=== PATIENT | male | born 1980 | race Caucasian/White ===

== ENCOUNTER 2024-08-31 08:12 | Outpatient (REF) | payer MEDICAID, SELFPAY ==
--- OUTSIDE RECORDS SUMMARY | 2024-08-31 08:21 | XMS_ITS | Clinical Summary ---
Author Organization [facility] [address] [place] [address] [place] [phone] Phone Care Team Providers Care Lean Manufacturing Leader Name Role Phone Jorge A Magallanes MD Primary Care Provider Allergies Active Allergy Reactions Criticality Noted Date Comments Lisinopril 03/10/2024 Other Reaction(s): SHELBY Shrimp 03/10/2024 Tramadol Nausea And Vomiting Medium 06/21/2013 Medications sertraline (ZOLOFT) 50 mg tablet Take 1 tablet (50 mg total) by mouth 1 (one) time each day. 4 Active ipratropium (ATROVENT) 21 mcg (0.03 %) nasal spray See Instructions, PRN Nasal Congestion, 1 spray each nostril BID, # 1 each, 4 Refills, Maintenance, 05/19/23 13:43:00 EST, [facility]/pharmacy #[id number], Partial fill upon patient request if the prescription is for a schedule II opioid drug., 1 spray each nostri... 4 Active cyclobenzaprine (FLEXERIL) 10 mg tablet Take 1 tab 3 times a day as needed for muscle spasm. Do not drive or operate heavy machinery on this medication. 4 Active cefpodoxime (VANTIN) 200 mg tablet Take 1 tablet (200 mg total) by mouth. 9 Active Active Problems Problem Noted Date Diagnosed Date Anxiety 03/10/2024 Depression 03/10/2024 Obstructive sleep apnea syndrome 03/10/2024 Overview (03/10/2024): Extremely severe Sleep related hypoxia 03/10/2024 Sexual dysfunction 03/10/2024 HTN (hypertension) 06/21/2013 Prediabetes 06/15/2013 Lumbar radiculopathy 06/07/2013 Obesity 06/07/2013 Immunizations Name Administration Dates Next Due Influenza trivalent, with pr eservative (Fluzone; Afluria) 6mo and older 06/07/2013 Tdap Tetanus diptheria acell ular pertussis (Boostrix; Adacel) 7yo and older 06/07/2013 Surgical History Surgery Date Site/Laterality Comments KNEE SURGERY PROCEDURE: HISTORICAL KNEE SURGERY; COMMENT: related to injury - torn meniscus HERNIA REPAIR PROCEDURE: REPAIR UMBILICAL HERNIA Medical History Medical History Date Comments Lumbar radiculopathy DX:Lumbar r adiculopathy Family History Medical History Relation Name Comments Coronary artery disease Mother Diabetes Mother Hypertension Mother Relation Name Status Comments Mother Social History Tobacco Use Types Packs/Day Years Used Date Smoking Tobacco: Former Cigarettes Q uit: 04/27/2001 Smokeless Tobacco: Never Alcohol Use Standard Drinks/Week Comments No 0 (1 standard drink = 0.6 oz pur e alcohol) Sex and Gender Information Value Date Recorded Sex Assigned at Not on file Legal Sex Male 5:37 AM EST Gender Identity Not on file Sexual Orientation Not on file Obstetrics History Last Filed Vital Signs Vital Sign Reading Time Taken Comments Blood Pressure 133/77 12/01/2023 4:03 PM EDT L A rm Pulse 65 12/01/2023 4:03 PM EDT Temperature - - Respiratory Rate - - Oxygen Saturation - - Inhaled Oxygen Concentration - - Weight - - Height - - Body Mass Index - - Plan of Treatment Health Maintenance Due Date Last Done Comments Hepatitis B Vaccines (1 of 3 - 19+ 3-dose series) 2000 DTaP,Tdap,and Td Vaccines (2 - Td or Tdap) 06/07/2023 06/07/2013 Cholesterol Screening (Lipid Panel) 12/22/2023 Depression Screening 12/22/2023 HIV Screening 12/22/2023 Hepatitis C Screening 12/22/2023 Hypertension/CHF/CAD Annual BMP Blood Test 12/22/2023 Social Influencers of Health Screening 12/22/2023 COVID-19 Vaccine (2 - 2023-2 5 season) 2023 12/26/2020 Influenza Vaccine (Season Ended) 2024 06/07/19 14 HIB Vaccines Aged Out No longer eligi ble based on patient's age to complete this topic HPV Vaccines Aged Out No longer eligi ble based on patient's age to complete this topic Hepatitis A Vaccines Aged Out No long er eligible based on patient's age to complete this topic IPV Vaccines Aged Out No longer eligi ble based on patient's age to complete this topic MMR Vaccines Aged Out No longer eligi ble based on patient's age to complete this topic Meningococcal ACWY Vaccine Aged Out N o longer eligible based on patient's age to complete this topic Meningococcal B Vaccine Aged Out No l onger eligible based on patient's age to complete this topic Pneumococcal Vaccine: Pediat rics (0 to 5 Years) and At-Risk Patients (6 to 64 Years) Aged Out No longer eligi ble based on patient's age to complete this topic RSV Immunization Patients Un ernesto 20 months Aged Out No longer eligible b ased on patient's age to complete this topic Varicella Vaccines Aged Out No longer eligible based on patient's age to complete this topic Care Teams Lean Manufacturing Leader Relationship Specialty Start Date End Date Jorge A Magallanes MD [address] [place] [address] PCP - General 11/02/23
[2024-08-31 10:59] LABS: MANUAL DIFF FLAG NO
[2024-08-31 11:11] LABS: Basophils Percent Auto 0.5 % (0-2); Eosinophils Absolute Auto 0.2 X10*3/uL (0.0-0.4); Eosinophils Percent Auto 3.9 % (0-4); Hemoglobin 12.2 g/dl (14.0-18.0); Imm Gran Abs Auto 0.02 X10*3/uL (0.00-0.03); Imm Gran Pct Auto 0.3 % (0.0-0.4); Lymphocytes Absolute Auto 2.7 X10*3/uL (1.2-4.9); Lymphocytes Percent Auto 44.2 % (20-40); Mean Corpuscular HGB Conc 31.3 g/dl (31.0-36.0); Mean Corpuscular Hemoglobin 26.6 pg (27.0-33.0); Mean Platelet Volume 10.6 fL (9.4-12.4); Monocytes Absolute Auto 0.4 X10*3/uL (0.1-1.2); Monocytes Percent Auto 5.7 % (2-11); Neutrophils Absolute Auto 2.8 x10*3/uL (2.0-8.3); Neutrophils Percent Auto 45.4 % (45-73); Platelet Count 249 X10*3/uL (160-400); Red Blood Count 4.59 X10*6/uL (4.60-5.80); Red Cell Distribution Width 14.6 % (11.0-16.0); White Blood Count 6.1 X10*3/uL (4.8-10.8)
[2024-08-31 11:56] LABS: Alanine Aminotransferase 39 U/L (0-40); Albumin Level 4.2 g/dL (3.5-5.0); Alkaline Phosphatase 65 U/L (39-117); Anion Gap 11 (12-20); Aspartate Amino Transferase 27 U/L (5-37); Bilirubin Total 0.5 mg/dL (0.0-1.0); Blood Urea Nitrogen 13 mg/dL (9-16); Calcium 9.2 mg/dL (8.4-10.2); Carbon Dioxide 24 mmol/L (22-29); Chloride 106 mmol/L (96-108); Estimated Glomerular Filt Rate > 60; Glucose Random 87 mg/dL (60-115); Potassium 4.1 mmol/L (3.3-5.1); Sodium 137 mmol/L (135-145); Total Protein 7.5 g/dL (6.5-8.0)
[2024-08-31 12:11] LABS: HIV AB/AG Nonreactive (Nonreactive); HIV Num 1 0.06 S/CO (0.00-0.99); ~HepC Num1 0.11 S/CO (0.00-0.79); ~Hepatitis C Antibody Nonreactive (Nonreactive)
== END 2024-08-31 08:13 | disposition home or self-care (01) ==
LOC: HO.HHCL 08:12
DX: R73.03 Prediabetes (principal); Z11.4 Encounter for screening for human immunodeficiency virus [HIV]; Z00.00 Encounter for general adult medical examination without abnormal findings
CPT/HCPCS: 36415; 80053; 85025; 86803; 87389

== ENCOUNTER 2025-02-13 10:33 | Outpatient (REF) | payer MEDICAID, SELFPAY ==
--- OUTSIDE RECORDS SUMMARY | 2025-02-13 12:40 | XMS_ITS | Clinical Summary ---
Author Organization [employer] Address [address] [facility] [address] [place] [address] Care Team Providers Care Flat Surfacer Jewel Name Role Phone ChewShadia EAMON Primary Care Provider [phone] Allergies Active Allergy Reactions Criticality Noted Date Comments Lisinopril 05/20/2024 Other Reaction(s): SHELBY Shellfish Allergy High 12/04/2022 Shellfish Protein-Containing Drug Products High 12/04/2022 Shrimp Extract 05/20/2024 Medications * This document contains information received from the source organization and may not represent a complete record from that organization. FREESTYLE LITE test strip 1 each by Other route 2 times daily. Use as instructed 60 each 3 4 Active Alcohol Swabs (Alcohol Prep) pads 1 each 2 times daily. 60 each 3 4 Active Blood Glucose Monitoring Suppl (FreeStyle Lite) w/Device kitIndications:Pr ediabetes 1 Device 3 times daily. 1 kit 4 08/28/19 27 Active modafinil (Provigil) 200 MG tablet Take 1 tablet by mouth Once per day. 4 Active Tirzepatide 2.5 MG/0.5ML solution auto-injectorIndi cations:Morbid obesity (CMS/HCC) ([facility]) Inject 2.5 mg under the skin 1 (one) time per week. 2 mL 5 Active amLODIPine (Norvasc) 10 MG tabletIndications :Primary hypertension Take 1 tablet (10 mg) by mouth Once per day. 90 tablet 1 5 02/28/20 25 Active Active Problems Problem Noted Date Diagnosed Date Morbid obesity (CMS/HCC) 05/20/2024 Assessment & Plan (05/20/2024 10:37 AM EST): Recommend: Daily exercise at least 30min, moderate intensity, incorporating both cardiovascular exercise and weight training. Adequate protein intake, Recommended at least 20 g per meal of protein to assist with satiety. Decrease soda and sugary beverage consumption. Weight loss medications must be used as part of a comprehensive lifestyle plan that incorporates the recommendations above. Pt has tried to lose weight for at least 4 months via improved nutrition/reduced caloric intake and increased physical activity and has not lost weight. Anxiety 05/20/2024 Assessment & Plan (05/20/2024 10:43 AM EST): Pt declines pharmacological treatment Pt declines in office consult today but would like a referral to for therapy services Placed referral today Healthcare maintenance 05/20/2024 Assessment & Plan (05/20/2024 10:44 AM EST): Routine blood work ordered today, see orders Pt declines vaccination today Pt referred to [facility] dental/vision services Pt referred to [facility] to help with housing instability, pt has housing currently but is in process of being evicted. HTN (hypertension) 12/02/2023 BRANNON (obstructive sleep apnea) 12/02/2023 Assessment & Plan (05/20/2024 10:51 AM EST): Encouraged pt to continue with CPAP use nightly Pt is motivated to lose weight to help with BRANNON Will be starting Zepbound for weightloss Prediabetes 12/02/2023 Assessment & Plan (05/20/2024 12:31 PM EST): Lab Results Component Value Date HGBA1C 6.0 05/20/2024 Pt will ensure he is checking Bgs 1-2x daily Encouraged regular aerobic exercise for improved glycemic control Encouraged daily foot checks Encouraged lean protein snacks and to avoid foods high in sugar and simple carbohydrates Will trial Zepbound at starting dose of 2.5mg for 4 weeks, PA initiated, Pt denies personal or family hx of pancreatitis and thyroid cancer. Side effects discussed including, abdominal upset, nausea, vomiting, diarrhea F/u in 6 weeks Heart murmur 12/02/2023 Assessment & Plan (05/20/2024 10:42 AM EST): Pt reports he has been seen for his heart murmur in the past and would like to be evaluated by specialist Murmur not heard today on exam Referral placed Immunizations Immunization Administration Dates Next Due Influenza, IIV3, injectable 06/07/2013 Tdap 06/07/2013 Family History Medical History Relation Name Comments Asthma Father Hypertension Mother Relation Name Status Comments Father Mother Social History Tobacco Use Types Packs/Day Years Used Date Smoking Tobacco: Never Smokeless Tobacco: Never Tobacco Cessation:Counseling Given: Not Answered Alcohol Use Standard Drinks/Week Comments Never 0 (1 standard drink = 0.6 oz pur e alcohol) Alcohol Answer Date Recorded How often do you have a drink containing alcohol ? 1 12/09/2022 How many drinks containing a lcohol do you have on a typical day when you are drinking? 0 12/09/2022 How often do you have six or more drinks on one occasion? 0 12/09/2022 Depression Answer Date Recorded Patient Health Questionnaire-9 Score 17 05/20/2024 Patient Health Questionnaire-9 Score 17 05/20/2024 Last PHQ-9: Questionnaire Data Not on file 0 05/20/2024 Housing Stability Answer Date Recorded What is your housing situation today? I have housing today, but I am worried about losing housing in the future 05/20/[address] you li ve. Do you have problems with any of the following? None of the above 05/20/2024 Food Insecurity Answer Date Recorded Within the past 12 months, y ou worried that your food would run out before you got money to buy more: Sometimes True 2024 Within the past 12 months,th e food you bought just didn't last and you didn't have enough money to get more: Sometimes True 05/20/2024 Transportation Answer Date Recorded In the past 12 months, has l ack of transportation kept you from medical appts, meetings, work or from getting things needed for daily living? No 05/20/2024 Utilities Answer Date Recorded In the past 12 months, has t he electric, gas, oil or water company threatened to shut off services in your home? I am not sure 05/20/2024 Depression Answer Date Recorded Patient Health Questionnaire-2 Score 5 05/20/2024 Internet Access Answer Date Recorded Internet Access Q1 Yes 05/20/2024 Internet Access Q2 Not on file 05/20/2024 Sex and Gender Information Value Date Recorded Sex Assigned at Male 12/04/2022 9:28 AM EDT Legal Sex Male 9:26 AM EDT Gender Identity Male 12/04/2022 9:28 AM EDT Sexual Orientation Choose not to disclose 2022 9:28 AM EDT Last Filed Vital Signs Vital Sign Reading Time Taken Comments Blood Pressure 132/84 08/31/2024 9:15 AM EDT Pulse 58 08/31/2024 9:04 AM EDT Temperature 36.8 C (98.2 F) 08/31/2024 9:04 AM EDT Respiratory Rate 21 08/31/2024 9:04 AM EDT Oxygen Saturation 98% 08/31/2024 9:04 AM EDT Inhaled Oxygen Concentration - - Weight 147 kg (323 lb) 08/31/2024 9:04 AM EDT Height 167.6 cm (5' 6 ) 08/31/2024 9:04 AM EDT Body Mass Index 52.13 08/31/2024 9:04 AM EDT Plan of Treatment Health Maintenance Due Date Last Done Comments Family Planning (PISQ) 1996 HPV Vaccines (1 - Male 3-dos e series) 1996 Hepatitis B Vaccines (1 of 3 - 19+ 3-dose series) 2000 DTaP/Tdap/Td Vaccines (2 - T d or Tdap) 06/07/2023 06/07/2013 Depression Monitoring 11/17/2024 05/20/2024 , 05/20/2024 COVID-19 Vaccine (2 - 2024-2 6 season) 2024 12/26/2020 Influenza Vaccine (#1) 2024 06/07/2013 Diabetes: Hemoglobin A1C 05/20/2025 025, 12/09/2022 SDOH Screening 05/20/2025 05/20/2024 Alcohol/Substance Use Screening 08/31/2025 08/31/2024 Disability Screening 08/31/2025 08/31/2024 Tobacco Screening 08/31/2025 08/31/2024 Lipid Panel 12/10/2027 12/09/2022 Zoster Vaccines (1 of 2) 09/09/2031 RSV Patients and Patients Aged 60 years or older (1 - 1-dose 75+ series) 2056 HIV Screening Completed 08/31/2024 Hepatitis C Screening Completed 08/31/2024 HIB Vaccines Aged Out No longer eligi [...] patient's age to complete this topic Meningococcal Vaccine Aged Out No ct blake eligible based on patient's age to complete this topic Pneumococcal Vaccine: Pediatrics (0 to 5 Years) and At-Risk Patients (6 to 49) Years Aged Out No longer eligible b ased on patient's age to complete this topic RSV under 20 months Aged Out No longe r eligible based on patient's age to complete this topic Rotavirus Vaccines Aged Out No longer eligible based on patient's age to complete this topic Procedures Procedure Name Priority Date/Time Associated Diagnosis Comments HEPATITIS C AB W/REFL TO HCV RNA, QN, PCR Routine 08/31/2024 8:15 AM EDT Healthcare maintenance HIV 1/2 ANTIGEN/ANTIBODY, FOURTH GENERATION W/RFL Routine 08/31/2024 8:15 AM EDT Healthcare maintenance POCT GLYCATED HEMOGLOBIN, TOTAL Routine 05/20/2024 9:42 AM EST Prediabetes LIPID PANEL, STANDARD Routine 12/09/2022 10:50 AM EDT Morbid obesity (CMS/HCC) from Last 3 Months or Most Recently Relevant to Health Maintenance Results * Hepatitis C Antibody with Reflex to HCV, RNA, Quantitative, Real-Time PCR (08/31/2024 8:15 AM EDT) Hepatitis C Antibody Nonreactive Nonreactive [facility] Comment:Antibodies to HCV no t detected; does not exclude early acuteHCV infection. Blood Venous blood specimen / Unknown 08/31/2024 8:15 AM EDT 08/31/2024 10:55 AM EDT Critical access hospital LAB BLOOD ORDERABLES Wendy l Result Performing Organization Address City/[facility]/ZIP Co de Phone Number [facility] [address] [place] [phone] * HIV-1/2 Antigen and Antibodies, Fourth Generation, with Reflexes (08/31/2024 8:15 AM EDT) Pathologist [facility] HIV AB/AG Nonreactive Nonreactive [facility] Comment:HIV-1 p24 Ag and/or HIV-1/HIV-2 Ab not detected.A test result that is nonreactive does not exclude thepossibility of exposure to or infection with HIV-1 and/orHIV-2. Nonreactive results in this assay for individualswith prior exposure to HIV-1 and/or HIV-2 may be due toantigen and antibody levels that are below the limit ofdetection of this assay.The [employer] HIV Ag/Ab Combo assay result andsupplemental assay results should be interpreted inconjunction with the patient's clinical presentation,history and other laboratory results. If the results areinconsistent with clinical evidence, additional testing issuggested to confirm the result. Blood Venous blood specimen / Unknown 08/31/2024 8:15 AM EDT 08/31/2024 10:55 AM EDT Critical access hospital LAB BLOOD ORDERABLES Wendy l Result Performing Organization Address [facility] Co de Phone Number [facility] [address] [place] [phone] * POCT HGB A1C (05/20/2024 9:42 AM EST) Pathologist [facility] Hemoglobin A1C 6.0 4.0 - 6.0 % QC Media Lot # [id number] Lot# Expiration Date [id number] Blood 05/20/2024 9:42 AM EST Result [facility] POINT OF CARE TEST ENTER/ EDIT ORDERABLES Final Result * (ABNORMAL) Lipid Panel, Standard (12/09/2022 10:50 AM EDT) Cholesterol, Total 187 <200 mg/dL [facility] HDL Cholesterol 44 > OR = 40 mg/dL [facility] Triglycerides 297(H) <150 mg/dL [facility] Comment: If a non-fasting specimen was collected, consider repeat triglyceride testing on a fasting specimen if clinically indicated. Jacinto et al. J. of Clin. Lipidol. 2015;9:129-169. LDL Cholesterol 103(H) mg/dL [facility] Comment: Reference range: <100 Desirable range <100 mg/dL for primary prevention; <70 mg/dL for patients with CHD or diabetic patients with > or = 2 CHD risk factors. LDL-C is now calculated using the Jamel-Emiliano calculation, which is a validated novel method providing better accuracy than the Friedewald equation in the estimation of LDL-C. Jamel SS et al. CARIN. 2013;310(19): 8348-9837 (http://education.[employer]/faq/DDU528) Chol/HDLC Ratio 4.3 <5.0 (calc) [facility] Non-HDL Cholesterol 143(H) <130 mg/dL [facility] Comment: For patients with diabetes plus 1 major ASCVD risk factor, treating to a non-HDL-C goal of <100 mg/dL (LDL-C of <70 mg/dL) is considered a therapeutic option. Blood Venous blood specimen / Unknown 12/09/2022 10:50 AM EDT 12/09/2022 10:50 AM EDT Selena Sosa [facility] LAB BLOOD ORDERABLES Final Result [facility] [address], [place] [phone] [facility] [address] [place] [phone] from Last 3 Months or Most Recently Relevant to Health Maintenance Insurance [facility] C3 Care Teams Flat Surfacer Jewel Relationship Specialty Start Date End Date Shadia Chew CNP PCP - General Family Medicine 05/20/24
--- OUTSIDE RECORDS SUMMARY | 2025-02-13 12:40 | XMS_ITS | Clinical Summary ---
Author Organization [facility] [address] [place] [address] [place] [phone] Phone Care Team Providers Care Transport Engineer Name Role Phone Jorge A Magallanes MD Primary Care Provider [phone] Allergies Active Allergy Reactions Criticality Noted Date [...] each, 4 Refills, Maintenance, 05/19/23 13:43:00 EST, [facility]/pharmacy #[id number], Partial fill upon patient request if [...] 06/15/2013 Lumbar radiculopathy 06/07/2013 Obesity 06/07/2013 Immunizations Immunization Administration Dates Next Due Influenza trivalent, with [...] of 3 - 19+ 3-dose series) 2000 HPV Vaccines (1 - 3-dose SCD M series) 2008 DTaP,Tdap,and Td Vaccines (2 - Td or Tdap) 06/07/2023 06/07/2013 Cholesterol Screening (Lipid Panel) 12/22/2023 HIV Screening 12/22/2023 Hepatitis C Screening 12/22/2023 Hypertension/CHF/CAD Annual BMP Blood Test 12/22/2023 Social Influencers of Health Screening 12/22/2023 Depression Screening 04/27/2024 COVID-19 Vaccine (2 - 2024-2 6 season) 2024 12/26/2020 Influenza Vaccine (#1) 2024 06/07/2013 RSV Immunization Adult Patie nts (1 - 1-dose 75+ series) 2056 HIB Vaccines Aged Out No longer eligi [...] 5 Years) and At-Risk Patients (6 to 49 Years) Aged Out No longer eligi ble based on patient's age to complete this topic RSV Immunization Patients Un ernesto 20 months Aged Out No longer eligible b ased on patient's age to complete this topic Varicella Vaccines Aged Out No longer eligible based on patient's age to complete this topic Care Teams Transport Engineer Relationship Specialty Start Date End Date Jorge A Magallanes MD [address] [place] [address] PCP - General 11/02/23
[2025-02-13 15:01] LABS: Iron 63 mcg/dL (45-160); Percent Iron Saturation 20 % (15-50); Total Iron Binding Capacity 309 mcg/dL (228-428); Unsaturated Iron Binding 246 ug/dL
== END 2025-02-13 10:34 | disposition home or self-care (01) ==
LOC: HO.CHCLDS 10:33
DX: D50.9 Iron deficiency anemia, unspecified (principal)
CPT/HCPCS: 36415; 83540